=== PATIENT | male | born 1950 | race Caucasian/White ===

== ENCOUNTER 2018-08-22 17:16 | Inpatient (IN) ==
[2018-08-22] MEDS ORDERED: Aspirin 325 MG Tablet PO ONE (18:02)
--- NOTE | 2018-08-22 18:11 | XR ---
EXAM DATE: 08/22/2018 5:53 PM EDT AGE/SEX: 68 years / Male INDICATIONS: Chest pain. CLINICAL DATA: This is the patient's initial encounter. Patient reports that signs and symptoms have been present for 1 day and indicates a pain score of 3/10. MEDICAL/SURGICAL HISTORY: None. None. COMPARISON: No prior exams available for comparison. FINDINGS: Trace atelectasis left base. Lungs otherwise clear. No pleural effusion seen. No pneumothorax. Heart size within normal limits. CONCLUSION: Minimal left base atelectasis. Otherwise negative. Electronically signed by: Jean Lawton MD 08/22/2018 6:10 PM EDT
--- NOTE | 2018-08-22 18:28 | ED ---
HPI General Chief Complaint: Chest Pain Stated Complaint: chest pain, face swollen Time Seen by Provider: 08/22/18 17:53 Source: patient and family Mode of arrival: ambulatory Limitations: no limitations History of Present Illness HPI narrative: 68-year-old male the presents to the ED for evaluation of chest pain. Per patient has had chest pain that goes to his back since yesterday. Per patient he was here seen yesterday for swelling to his face. He was more concerned about this so he did not tell anything about the chest pain. Per patient the chest pain has continued through today. Per patient he took some beers to help that he will go away but it did not. He took 2 nitroglycerin of his own with some improvement of the pain. He did not took his Plavix or aspirin today. Per patient the pain is in the mid chest and feels like a pressure. He does have a history of what he calls "infarct "4-5 years ago in [place]. Per patient he did not had any stents or CABG. He was put on Plavix and blood pressure medications. Per patient he was in the hospital for about 5 days. He denies any other medical issues at this time. Denies any recent travel. No trauma. No numbness, tendon, weakness. Pain radiates to the back. Per patient the pain currently is 2 out of 10 if any. Per patient for the most part he feels better now. Related Data Home Medications Medication Instructions Recorded Confirmed aspirin 81 mg PO DAILY 08/22/18 08/22/18 clopidogrel [Plavix] 75 mg PO DAILY 08/22/18 08/22/18 meloxicam 7.5 mg PO DAILY 08/22/18 08/22/18 metoprolol tartrate 25 mg PO BID 08/22/18 08/22/18 simvastatin [Zocor] 40 mg PO QPM 08/22/18 08/22/18 Allergies Allergy/AdvReac Type Severity Reaction Status Date / Time No Known Allergies Allergy Verified 08/22/18 17:58 Review of Systems ROS: all other systems reviewed are negative [facility] Medical History Medical History HBP (high blood pressure) (Acute) Heart disease (Acute) High cholesterol (Acute) Surgical History Surgical History H/O cardiac catheterization (Acute) Social History Social History Substance History: No History of Abuse Second Hand Smoke Exposure: Yes Smoking Status: Current some day smoker Tobacco Type: Cigarettes How Often Do You Have a Drink Containing Alcohol: 2 to 3 times a week Recent Travel in [facility] within the Last 8 Weeks: No Recent Out of Country Travel within the Last 8 Weeks: No Immunization History Tetanus Immunization: <5 Years Hx Influenza Vaccine This Season: No Exam Narrative Exam Narrative: GENERAL: Well appearing SKIN: Focused skin assessment warm/dry. HEAD: Atraumatic. Normocephalic. EYES: Pupils equal and round. No scleral icterus. No injection or drainage. ENT: No nasal bleeding or discharge. Mucous membranes pink and moist. Tongue is midline. No uvula deviation. NECK: Trachea midline. No JVD. CARDIOVASCULAR: Regular rate and rhythm. No murmur appreciated. RESPIRATORY: No accessory muscle use. Clear to auscultation. Breath sounds equal bilaterally. GASTROINTESTINAL: Abdomen soft, non-tender, nondistended. Hepatic and splenic margins not palpable. MUSCULOSKELETAL: No obvious deformities. No clubbing. No cyanosis. No edema. Full range of motion of the upper and lower extremities bilaterally. 2+ pulses bilaterally. NEUROLOGICAL: Awake and alert. No obvious cranial nerve deficits. Motor grossly within normal limits. Normal speech. PSYCHIATRIC: Appropriate mood and affect; insight and judgment normal. Course Initial Documented Vital Signs Temperature 97.6 F 08/22/18 17:34 Pulse Rate 79 08/22/18 17:34 Respiratory Rate 20 08/22/18 17:34 Blood Pressure 129/65 08/22/18 17:34 Pulse Oximetry 96 08/22/18 17:34 Last Documented Vital Signs Temperature 97.8 F 08/22/18 17:53 Pulse Rate 80 08/22/18 17:53 Respiratory Rate 16 08/22/18 17:53 Blood Pressure 110/67 08/22/18 17:53 Pulse Oximetry 98 08/22/18 17:53 Medical Decision Making MDM Narrative Medical decision making narrative: 68-year-old male the presents to the ED for evaluation of chest pain. Patient was properly examined and was found to have signs and symptoms concerning for ACS. History of ACS and takes blood pressure medications and Plavix. Patient given aspirin. Labs and imaging order. Labs and imaging showed positive troponin. Patient currently minimally symptomatic. Per patient the pain is better but still present. He does have a significant history of heart disease. He is a smoker. Case was discussed with my attending Dr. Hudson who recommends admission. EKG here does not show any sign of ST elevations what appears to be Q waves on the inferior leads. Patient 's pain started yesterday. At this time recommendations for admission for further evaluation. Patient was told this and agrees with plan. Patient was on heparin bolus and drip. Dr Ramirez agrees to admission. Medical Screen Exam Complete: Yes Emergency Medical Condition: Yes Differential Diagnosis Differential Diagnosis: pancreatitis versus normal exam versus Chest pain versus typical chest pain versus ACS versus PE versus NSTEMI Medical Records Medical records reviewed: Yes I reviewed the patient's medical records. Lab Data Lab results reviewed: Yes I reviewed the patient's lab results. Lab results narrative: caogs WNL trop elevated at 1.41 CK negative Result diagrams: 08/22/18 18:00 08/22/18 18:00 Lab Results 08/22/18 08/22/18 08/22/18 Range/Units 18:00 18:00 18:00 WBC 18.0 H (4.0-11.0) th/mm3 RBC 4.20 L (4.50-5.90) mil/mm3 Hgb 13.8 (13.0-17.0) gm/dL Hct 39.1 (39.0-51.0) % MCV 93.0 (80.0-100.0) fL MCH 32.9 (27.0-34.0) pg MCHC 35.4 (32.0-36.0) % RDW 13.7 (11.6-17.2) % Plt Count 214 (150-450) th/mm3 MPV 9.3 (7.0-11.0) fL Neut % (Auto) 86.7 H (16.0-70.0) % Lymph % (Auto) 6.7 L (9.0-44.0) % [place] % (Auto) 6.4 (0.0-8.0) % Eos % (Auto) 0.0 (0.0-4.0) % Baso % (Auto) 0.2 (0.0-2.0) % Neut # (Auto) 15.6 H (1.8-7.7) th/mm3 Lymph # (Auto) 1.2 (1.0-4.8) th/mm3 [place] # (Auto) 1.1 H (0.0-0.9) th/mm3 Eos # (Auto) 0.0 (0.0-0.4) th/mm3 Baso # (Auto) 0.0 (0.0-0.2) th/mm3 WBC Differential . Differential Comment Auto diff final PT 10.3 (9.8-11.6) sec INR 1.0 Ratio APTT 25.6 (24.3-30.1) sec Sodium 138 (136-145) meq/L Potassium 3.9 (3.5-5.1) meq/L Chloride 103 (98-107) meq/L Carbon Dioxide 24.0 (21.0-32.0) meq/L Anion Gap 11 (5-15) meq/L BUN 19 H (7-18) mg/dL Creatinine 1.04 (0.60-1.30) mg/dL Estimated GFR 71 L (>89) mL/min Random Glucose 249 H (74-106) mg/dL Calcium 9.0 (8.5-10.1) mg/dL Total Bilirubin 0.3 (0.2-1.0) mg/dL AST 32 (15-37) U/L ALT 30 (12-78) U/L Alkaline Phosphatase 75 (45-117) U/L Total Creatine Kinase 352 H (39-308) U/L CK-MB (CK-2) 13.3 H (0.5-3.6) ng/mL CK-MB (CK-2) % 3.8 (0.0-4.0) % Troponin I 1.41 H* (0.02-0.05) ng/mL Total Protein 7.0 (6.4-8.2) g/dL Albumin 3.8 (3.4-5.0) g/dL Lipase (73-393) U/L 08/22/18 Range/Units 18:00 WBC (4.0-11.0) th/mm3 RBC (4.50-5.90) mil/mm3 Hgb (13.0-17.0) gm/dL Hct (39.0-51.0) % MCV (80.0-100.0) fL MCH (27.0-34.0) pg MCHC (32.0-36.0) % RDW (11.6-17.2) % Plt Count (150-450) th/mm3 MPV (7.0-11.0) fL Neut % (Auto) (16.0-70.0) % Lymph % (Auto) (9.0-44.0) % [place] % (Auto) (0.0-8.0) % Eos % (Auto) (0.0-4.0) % Baso % (Auto) (0.0-2.0) % Neut # (Auto) (1.8-7.7) th/mm3 Lymph # (Auto) (1.0-4.8) th/mm3 [place] # (Auto) (0.0-0.9) th/mm3 Eos # (Auto) (0.0-0.4) th/mm3 Baso # (Auto) (0.0-0.2) th/mm3 WBC Differential Differential Comment PT (9.8-11.6) sec INR Ratio APTT (24.3-30.1) sec Sodium (136-145) meq/L Potassium (3.5-5.1) meq/L Chloride (98-107) meq/L Carbon Dioxide (21.0-32.0) meq/L Anion Gap (5-15) meq/L BUN (7-18) mg/dL Creatinine (0.60-1.30) mg/dL Estimated GFR (>89) mL/min Random Glucose (74-106) mg/dL Calcium (8.5-10.1) mg/dL Total Bilirubin (0.2-1.0) mg/dL AST (15-37) U/L ALT (12-78) U/L Alkaline Phosphatase (45-117) U/L Total Creatine Kinase (39-308) U/L CK-MB (CK-2) (0.5-3.6) ng/mL CK-MB (CK-2) % (0.0-4.0) % Troponin I (0.02-0.05) ng/mL Total Protein (6.4-8.2) g/dL Albumin (3.4-5.0) g/dL Lipase 106 (73-393) U/L Imaging Data Attestation: I personally reviewed and interpreted this imaging study as follows : Radiologist's impression: Chest X-Ray 08/22/18 17:53 CONCLUSION: Minimal left base atelectasis. Otherwise negative. ECG Data Attestation: I personally reviewed and interpreted this ECG as follows: Interpretation: EKG shows Q waves in the inferior leads. No sign of ST elevations at this time. Read by me and attending. Ventricular rate of 81 bpm , NH interval of 163 ms. Discharge Plan Discharge Disposition Patient Disposition: 30 Still Patient Discharge Details Diagnosis: Non-ST elevation (NSTEMI) myocardial infarction Physicians Team ED Provider: [facility] ED Midlevel Provider: Finn Martinez Primary Care Provider: Ronny Loving Rxs /Orders / Referrals /Forms Prescriptions: No Action clopidogrel [Plavix] 75 mg Tablet 75 mg PO DAILY RF: 0 simvastatin [Zocor] 40 mg Tablet 40 mg PO QPM RF: 0 meloxicam 7.5 mg Tablet 7.5 mg PO DAILY RF: 0 aspirin 81 mg Tablet,Chewable 81 mg PO DAILY RF: 0 metoprolol tartrate 25 mg Tablet 25 mg PO BID RF: 0 Discharge Instructions Patient Printed Instructions: Chest Pain (ED) Status ED Status: Admitted Patient
[2018-08-22 18:30] LABS: Baso % (Auto) 0.2 % (0.0-2.0); Hematocrit 39.1 % (39.0-51.0); Hemoglobin 13.8 gm/dL (13.0-17.0); Lymph # (Auto) 1.2 th/mm3 (1.0-4.8); Lymph % (Auto) 6.7 % (9.0-44.0); Mean Corpuscular HGB Conc 35.4 % (32.0-36.0); Mean Corpuscular Hemoglobin 32.9 pg (27.0-34.0); Mean Platelet Volume 9.3 fL (7.0-11.0); Mono # (Auto) 1.1 th/mm3 (0.0-0.9); Mono % (Auto) 6.4 % (0.0-8.0); Neut # (Auto) 15.6 th/mm3 (1.8-7.7); Neut % (Auto) 86.7 % (16.0-70.0); Platelet Count 214 th/mm3 (150-450); Red Cell Distribution Width 13.7 % (11.6-17.2)
[2018-08-22 18:42] LABS: Activated Partial Thrombo Time 25.6 sec (24.3-30.1); Prothrombin Time 10.3 sec (9.8-11.6)
[2018-08-22 18:58] LABS: Albumin 3.8 g/dL (3.4-5.0); Anion Gap 11 meq/L (5-15); Aspartate Aminotransferase 32 U/L (15-37); Blood Urea Nitrogen 19 mg/dL (7-18); Chloride 103 meq/L (98-107); Glomerular Filtration Rate 71 mL/min (>89); Glucose,Random 249 mg/dL (74-106); Potassium 3.9 meq/L (3.5-5.1); Sodium 138 meq/L (136-145)
[2018-08-22 19:03] LABS: Alanine Aminotransferase 30 U/L (12-78); Alkaline Phosphatase 75 U/L (45-117); Creatine Kinase 352 U/L (39-308)
[2018-08-22 19:10] LABS: Troponin I 1.41 ng/mL (0.02-0.05)
[2018-08-22] MEDS ORDERED: Heparin 10,000 UNITS/10 ML Vial (for IV use) IV.PUSH STA (19:13)
[2018-08-22 19:22] LABS: CKMB Percent 3.8 % (0.0-4.0); Creatine Kinase MB 13.3 ng/mL (0.5-3.6)
[2018-08-22] MEDS: Heparin Drip 25,000 UNIT/250 ML BAG IV.CONT PRN (19:40)
[2018-08-22 20:28] LABS: Activated Partial Thrombo Time 25.4 sec (24.3-30.1); Prothrombin Time 10.4 sec (9.8-11.6)
[2018-08-22] MEDS: Metoprolol Tartrate 25 MG Tablet PO SCH (21:00)
[2018-08-22] MEDS ORDERED: Temazepam 15 MG Capsule PO PRN (21:02)
[2018-08-22] MEDS ORDERED: Bisacodyl 10 MG Supp RECTAL PRN (21:02)
--- NOTE | 2018-08-22 21:27 | P.HP ---
History of Present Illness Service: [facility] Primary Care Physician: Ronny Loving History of Present Illness: 68-year-old male with a past medical history significant for coronary artery disease status post SD, hypertension and hyperlipidemia presents the emergency department for evaluation of chest pain. The patient reports that the chest pain started yesterday he describes it as substernal and radiating to his left arm into his back. He was seen in the emergency department yesterday for facial swelling and given steroids and Benadryl with improvement of his symptoms. He returned to the emergency department today for worsening chest pain with accompanying shortness of breath. He denies any fever/chills. No headaches. No nausea/vomiting/diarrhea. No abdominal pain. No lateralizing signs/symptoms. Inpatient Certification: I certify that the inpatient services were ordered in accordance with Medicare regulations governing the order. This includes certification that hospital inpatient services are reasonable and necessary and in the case of services not specified as inpatient-only under 42 CFR 419.22(n), that they are appropriately provided as inpatient services in accordance to with the 2-midnight benchmark under 43 CFR 412.3(e) Estimated Total Length of Stay (Days): 3 Plans for Post Hospital Care: Home Review of Systems All other systems reviewed negative except as stated in [facility] - History History Provided By: Patient - Medical History Medical History: Medical History (Last Updated 08/22/18 @ 21:17 by Ayleen Ramirez MD) Coronary artery disease HBP (high blood pressure) Heart disease High cholesterol Status post myocardial infarction - Surgical History Surgical History: Surgical History (Last Updated 08/22/18 @ 21:18 by Ayleen Ramirez MD) H/O cardiac catheterization History of hand surgery - Family History Family History: Family History (Last Updated 08/22/18 @ 21:19 by Ayleen Ramirez MD) Other Family history normal - Tobacco History Second Hand Smoke Exposure: Yes Tobacco Use In Past 30 Days: Yes Smoking Status: Current some day smoker Tobacco Type: Cigarettes - Alcohol History How Often Do You Have a Drink Containing Alcohol: 2 to 3 times a week - Substance Use History Substance History: No History of Abuse - Travel History Recent Travel in the [place] Within the Last 8 Weeks: No Recent Travel Out of the Country Within the Last 8 Weeks: No - Immunization History Tetanus Immunization: <5 Years Hx Influenza Vaccine This Season: No Medications and Allergies Active Medications: Active Medications Acetaminophen (Tylenol) 650 mg PO Q4H PRN PRN Reason: Temp > 100.4 Aspirin (Aspirin Chew) 81 mg PO DAILY JASON Bisacodyl (Dulcolax Supp) 10 mg RECTAL DAILY PRN PRN Reason: SEVERE CONSITIPATION Clopidogrel Bisulfate (Plavix) 75 mg PO DAILY [facility] Heparin Sodium/Dextrose (Heparin/D5w 25,000 U/250 Ml) 25,000 unit in 250 mls @ 0 mls/hr IV.CONT TITRATE PRN; Protocol PRN Reason: Per Protocol Last Admin: 08/22/18 19:40 Dose: 900 units/hr, 9 mls/hr Metoprolol Tartrate (Lopressor) 25 mg PO BID JASON Non-Formulary Medication (Simvastatin [Zocor]) 40 mg PO QPM JASON Ondansetron HCl (Zofran Inj) 4 mg IV.PUSH Q6H PRN PRN Reason: NAUSEA OR VOMITING Sennosides (Senokot) 17.2 mg PO Q12H PRN PRN Reason: Moderate Constipation Sodium Chloride (Ns Flush) 2 ml IV.FLUSH UNSCH PRN PRN Reason: FLUSH AFTER USING IV ACCESS Last Admin: 08/22/18 18:06 Dose: 2 ml Temazepam (Restoril) 15 mg PO HS PRN PRN Reason: INSOMNIA Allergies Allergy/AdvReac Type Severity Reaction Status Date / Time No Known Allergies Allergy Verified 08/22/18 17:58 Home Medications Medication Instructions Recorded Confirmed Type aspirin 81 mg PO DAILY 08/22/18 08/22/18 History clopidogrel [Plavix] 75 mg PO DAILY 08/22/18 08/22/18 History meloxicam 7.5 mg PO DAILY 08/22/18 08/22/18 History metoprolol tartrate 25 mg PO BID 08/22/18 08/22/18 History simvastatin [Zocor] 40 mg PO QPM 08/22/18 08/22/18 History Exam Vital signs: Vital Signs 08/22/18 17:34 08/22/18 17:48 08/22/18 17:53 Temperature 97.6 F 97.8 F Pulse Rate 79 72 80 Respiratory Rate 20 16 16 Blood Pressure 129/65 108/63 110/67 Pulse Oximetry 96 99 98 08/22/18 19:55 Temperature Pulse Rate 75 Respiratory Rate 16 Blood Pressure 100/62 Pulse Oximetry 96 Intake & Output 08/22/18 08/22/18 08/23/18 06:59 18:59 06:59 Weight 75 kg Narrative: Gen.: No acute distress Head: Normocephalic. Atraumatic. EENT: Pupils equal round and reactive to light. Nose without drainage. Airway intact. Throat without injection. Cardiovascular: Regular rate and rhythm. 3/6 LUCINDA. Respiratory: Lungs clear to auscultation bilaterally. No wheezes or rhonchi. Abdomen: Soft, nontender, nondistended. No peritoneal signs. Musculoskeletal: No gross deformities. No edema. Skin: No obvious rashes or erythema. Neuro: Sensory and motor grossly intact. Cranial nerves II through XII grossly intact. Results - Labs CBC & Chem 7: 08/22/18 18:00 08/22/18 18:00 Labs: Laboratory Results - last 24 hr 08/22/18 08/22/18 08/22/18 18:00 18:00 18:00 WBC 18.0 H RBC 4.20 L Hgb 13.8 Hct 39.1 MCV 93.0 MCH 32.9 MCHC 35.4 RDW 13.7 Plt Count 214 MPV 9.3 Neut % (Auto) 86.7 H Lymph % (Auto) 6.7 L [place] % (Auto) 6.4 Eos % (Auto) 0.0 Baso % (Auto) 0.2 Neut # (Auto) 15.6 H Lymph # (Auto) 1.2 [place] # (Auto) 1.1 H Eos # (Auto) 0.0 Baso # (Auto) 0.0 WBC Differential . Differential Comment Auto diff final PT 10.3 INR 1.0 APTT 25.6 D-Dimer Quant (PE/DVT) Sodium 138 Potassium 3.9 Chloride 103 Carbon Dioxide 24.0 Anion Gap 11 BUN 19 H Creatinine 1.04 Estimated GFR 71 L Random Glucose 249 H Calcium 9.0 Total Bilirubin 0.3 AST 32 ALT 30 Alkaline Phosphatase 75 Total Creatine Kinase 352 H CK-MB (CK-2) 13.3 H CK-MB (CK-2) % 3.8 Troponin I 1.41 H* Total Protein 7.0 Albumin 3.8 Lipase 08/22/18 08/22/18 08/22/18 18:00 18:00 19:35 WBC RBC Hgb Hct MCV MCH MCHC RDW Plt Count MPV Neut % (Auto) Lymph % (Auto) [place] % (Auto) Eos % (Auto) Baso % (Auto) Neut # (Auto) Lymph # (Auto) [place] # (Auto) Eos # (Auto) Baso # (Auto) WBC Differential Differential Comment PT 10.4 INR 1.0 APTT 25.4 D-Dimer Quant (PE/DVT) 1.57 H Sodium Potassium Chloride Carbon Dioxide Anion Gap BUN Creatinine Estimated GFR Random Glucose Calcium Total Bilirubin AST ALT Alkaline Phosphatase Total Creatine Kinase CK-MB (CK-2) CK-MB (CK-2) % Troponin I Total Protein Albumin Lipase 106 - Imaging Impressions Chest X-Ray 08/22/18 17:53 CONCLUSION: Minimal left base atelectasis. Otherwise negative. Caprini VTE Risk Assessment Caprini VTE Risk Assessment: Moderate/High Risk (score >= 2) Caprini Risk Assessment Model: Point Value = 1 Point Value = 2 Point Value = 3 Point Value = 5 Age 41-60 Minor surgery BMI > 25 kg/m2 Swollen legs Varicose veins or History of unexplained or recurrent spontaneous Oral contraceptives or hormone replacement Sepsis (< 1 month) Serious lung disease, including pneumonia (< 1 month) Abnormal pulmonary function Acute myocardial infarction Congestive heart failure (< 1 month) History of inflammatory bowel disease Medical patient at bed rest Age 61-74 Arthroscopic surgery Major open surgery (> 45 min) Laparoscopic surgery (> 45 min) Malignancy Confined to bed (> 72 hours) Immobilizing plaster cast Central venous access Age >= 75 History of VTE Family history of VTE Factor V Leiden Prothrombin [id number] Lupus anticoagulant Anticardiolipin antibodies Elevated serum homocysteine Heparin-induced thrombocytopenia Other congenital or acquired thrombophilia Stroke (< 1 month) Elective arthroplasty Hip, pelvis, or leg fracture Acute spinal cord injury (< 1 month) Prophylaxis Regimen: Total Risk Factor Score Risk Level Prophylaxis Regimen 0-1 Low Early ambulation 2 Moderate Order ONE of the following: *Sequential Compression Device (SCD) *Heparin 5000 units SQ BID 3-4 Higher Order ONE of the following medications: *Heparin 5000 units SQ TID *Enoxaparin/Lovenox 40 mg SQ daily (WT < 150 kg, CrCl > 30 mL/min) *Enoxaparin/Lovenox 30 mg SQ daily (WT < 150 kg, CrCl > 10-29 mL/min) *Enoxaparin/Lovenox 30 mg SQ BID (WT < 150 kg, CrCl > 30 mL/min) AND/OR *Sequential Compression Device (SCD) 5 or more Highest Order ONE of the following medications: *Heparin 5000 units SQ TID (Preferred with Epidurals) *Enoxaparin/Lovenox 40 mg SQ daily (WT < 150 kg, CrCl > 30 mL/min) *Enoxaparin/Lovenox 30 mg SQ daily (WT < 150 kg, CrCl > 10-29 mL/min) *Enoxaparin/Lovenox 30 mg SQ BID (WT < 150 kg, CrCl > 30 mL/min) AND *Sequential Compression Device (SCD) Assessment and Plan - Plan Assessment/plan: 1. NSTEMI Initial troponin 1.41 EKG without signs of ischemia, personally reviewed Serial troponins/EKGs Heparin bolus and drip Cardiology consulted, appreciate assistance Patient reports history of previous cardiac catheterization without intervention however is on Plavix. 2. Shortness of breath/elevated d-dimer CTA pending to rule out PE 3. CAD/hypertension/hyperlipidemia Continue home medications FEN N.p.o. Electrolytes: Monitor and replete as needed NS at 70 cc/hour Heparin drip
--- NOTE | 2018-08-22 22:42 | CT ---
EXAM DATE: 08/22/2018 10:06 PM EDT AGE/SEX: 68 years / Male INDICATIONS: Chest pain. CLINICAL DATA: This is the patient's initial encounter. Patient reports that signs and symptoms have been present for 1 day and indicates a pain score of 10/10. MEDICAL/SURGICAL HISTORY: Hypertension. Cardiovascular disease. Myocardial infarction. . Cardiac Cath. RADIATION DOSE: 21.60 CTDI (mGy) COMPARISON: No prior exams available for comparison. TECHNIQUE: Volumetric scanning was performed using a multi-row detector CT scanner during bolus infu marzena of 75 ml Omnipaque 350 (iohexol) nonionic water-soluble contrast as a single exam dose. The sarah a was post processed with a variety of visualization algorithms including full volume maximum intensi ty projection and sliding thin slab reformation. Using automated exposure control and adjustment of the mA and/or kV according to patient size, radiation dose was kept as low as reasonably achievable t o obtain optimal diagnostic quality images. DICOM format image data is available electronically for review and comparison. FINDINGS: There is no pulmonary embolus. Trace atelectasis seen of both lung bases. No pneumonic infiltrate. No pleural effusion or pneumothor ax. Heart size within normal limits. There is right and left side coronary artery calcification noted. No lymphadenopathy. Visualized upper abdomen grossly unremarkable. CONCLUSION: 1. No pulmonary embolus. 2. Mild atelectasis of both lung bases. 3. Coronary artery calcification. Electronically signed by: Jean Lawton MD 08/22/2018 10:41 PM EDT
[2018-08-22] MEDS: Acetaminophen 325 MG Tablet PO PRN (23:14)
[2018-08-22] MEDS: Sod Chloride 0.9% Inj 1,000 ML IV.CONT SCH (23:17)
[2018-08-23 01:55] LABS: Troponin I 11.3 ng/mL (0.02-0.05)
[2018-08-23 02:07] LABS: Creatine Kinase MB 26.3 ng/mL (0.5-3.6)
[2018-08-23 02:09] LABS: CKMB Percent 5.8 % (0.0-4.0)
[2018-08-23 06:54] LABS: Baso % (Auto) 0.3 % (0.0-2.0); Eos % (Auto) 0.1 % (0.0-4.0); Hematocrit 40.3 % (39.0-51.0); Hemoglobin 13.4 gm/dL (13.0-17.0); Lymph # (Auto) 2.6 th/mm3 (1.0-4.8); Lymph % (Auto) 20.2 % (9.0-44.0); Mean Corpuscular HGB Conc 33.4 % (32.0-36.0); Mean Corpuscular Hemoglobin 31.4 pg (27.0-34.0); Mean Corpuscular Volume 94.2 fL (80.0-100.0); Mean Platelet Volume 9.6 fL (7.0-11.0); Mono # (Auto) 0.8 th/mm3 (0.0-0.9); Mono % (Auto) 6.4 % (0.0-8.0); Neut # (Auto) 9.3 th/mm3 (1.8-7.7); Platelet Count 185 th/mm3 (150-450); Red Blood Count 4.28 mil/mm3 (4.50-5.90); Red Cell Distribution Width 13.8 % (11.6-17.2); White Blood Count 12.7 th/mm3 (4.0-11.0)
[2018-08-23 07:23] LABS: Anion Gap 10 meq/L (5-15); Blood Urea Nitrogen 18 mg/dL (7-18); Calcium 7.9 mg/dL (8.5-10.1); Carbon Dioxide 25.9 meq/L (21.0-32.0); Chloride 107 meq/L (98-107); Glomerular Filtration Rate Greater Than 89 mL/min (>89); Glucose,Random 113 mg/dL (74-106); Potassium 4.1 meq/L (3.5-5.1); Sodium 143 meq/L (136-145)
[2018-08-23] MEDS: Acetaminophen 325 MG Tablet PO PRN ×2 (07:30→23:31)
[2018-08-23] MEDS: Metoprolol Tartrate 25 MG Tablet PO SCH ×2 (09:15→20:38)
--- NOTE | 2018-08-23 13:00 | P.PNIM ---
Subjective Interval history: Patient is eating today and a history of received from family is that the plan is to go to heart catheterization tomorrow. He denies any chest pain or shortness of breath. Physical Exam Vital signs: Vital Signs 08/22/18 17:34 08/22/18 17:48 08/22/18 17:53 Temperature 97.6 F 97.8 F Pulse Rate 79 72 80 Respiratory Rate 20 16 16 Blood Pressure 129/65 108/63 110/67 Pulse Oximetry 96 99 98 08/22/18 19:55 08/22/18 23:00 08/23/18 00:00 Temperature 98 F Pulse Rate 75 71 68 Respiratory Rate 16 16 16 Blood Pressure 100/62 110/72 Pulse Oximetry 96 96 08/23/18 01:00 08/23/18 02:00 08/23/18 03:00 Temperature Pulse Rate 67 65 67 Respiratory Rate Blood Pressure Pulse Oximetry 08/23/18 04:00 08/23/18 05:00 08/23/18 06:00 Temperature 98.3 F Pulse Rate 82 68 65 Respiratory Rate 16 Blood Pressure 115/68 Pulse Oximetry 97 08/23/18 07:00 08/23/18 07:38 08/23/18 08:00 Temperature 97.6 F Pulse Rate 63 67 68 Respiratory Rate 24 Blood Pressure 115/50 L Pulse Oximetry 94 L 94 L 08/23/18 09:00 08/23/18 10:00 08/23/18 11:00 Temperature Pulse Rate 70 72 69 Respiratory Rate Blood Pressure Pulse Oximetry 08/23/18 12:00 Temperature 98.1 F Pulse Rate 68 Respiratory Rate 18 Blood Pressure 107/53 L Pulse Oximetry 93 L Intake & Output 08/22/18 08/23/18 08/23/18 18:59 06:59 18:59 Intake Total 0 / 0 Balance 0 / 0 Weight 75 kg 89.4 kg Intake: Oral 0 / 0 Other: # Voids 1 # Bowel Movements 0 Narrative: GENERAL: AAOx3, no acute distress SKIN: Warm and dry. No rashes HEAD: Atruamtic, normocephalic. EYES: No scleral icterus. No injection or drainage. ENT: Moist mucous membranes, patent nares, no erythema of oropharynx. NECK: Supple, trachea midline. No JVD or lymphadenopathy. Normal thyroid. CARDIOVASCULAR: Regular rate and rhythm. 1/6 LUCINDA, no gallops, or rubs. RESPIRATORY: Breath sounds clear equal bilaterally. No crackles or wheezes. No accessory muscle use. GASTROINTESTINAL: Abdomen soft, non-tender, nondistended, normal active bowel sounds MUSCULOSKELETAL: No cyanosis, or edema. NEURO: CN II-XII grossly intact, no focal deficits, no slurring of speech Results - Labs CBC & Chem 7: 08/23/18 05:31 08/23/18 05:31 Laboratory Results - last 24 hr 08/22/18 08/22/18 08/22/18 18:00 18:00 18:00 WBC 18.0 H RBC 4.20 L Hgb 13.8 Hct 39.1 MCV 93.0 MCH 32.9 MCHC 35.4 RDW 13.7 Plt Count 214 MPV 9.3 Neut % (Auto) 86.7 H Lymph % (Auto) 6.7 L [place] % (Auto) 6.4 Eos % (Auto) 0.0 Baso % (Auto) 0.2 Neut # (Auto) 15.6 H Lymph # (Auto) 1.2 [place] # (Auto) 1.1 H Eos # (Auto) 0.0 Baso # (Auto) 0.0 WBC Differential . Differential Comment Auto diff final PT 10.3 INR 1.0 APTT 25.6 D-Dimer Quant (PE/DVT) Sodium 138 Potassium 3.9 Chloride 103 Carbon Dioxide 24.0 Anion Gap 11 BUN 19 H Creatinine 1.04 Estimated GFR 71 L Random Glucose 249 H Calcium 9.0 Total Bilirubin 0.3 AST 32 ALT 30 Alkaline Phosphatase 75 Total Creatine Kinase 352 H CK-MB (CK-2) 13.3 H CK-MB (CK-2) % 3.8 Troponin I 1.41 H* Total Protein 7.0 Albumin 3.8 Lipase 08/22/18 08/22/18 08/22/18 18:00 18:00 19:35 WBC RBC Hgb Hct MCV MCH MCHC RDW Plt Count MPV Neut % (Auto) Lymph % (Auto) [place] % (Auto) Eos % (Auto) Baso % (Auto) Neut # (Auto) Lymph # (Auto) [place] # (Auto) Eos # (Auto) Baso # (Auto) WBC Differential Differential Comment PT 10.4 INR 1.0 APTT 25.4 D-Dimer Quant (PE/DVT) 1.57 H Sodium Potassium Chloride Carbon Dioxide Anion Gap BUN Creatinine Estimated GFR Random Glucose Calcium Total Bilirubin AST ALT Alkaline Phosphatase Total Creatine Kinase CK-MB (CK-2) CK-MB (CK-2) % Troponin I Total Protein Albumin Lipase 106 08/23/18 08/23/18 08/23/18 01:06 01:06 05:31 WBC 12.7 H RBC 4.28 L Hgb 13.4 Hct 40.3 MCV 94.2 MCH 31.4 MCHC 33.4 RDW 13.8 Plt Count 185 MPV 9.6 Neut % (Auto) 73.0 H Lymph % (Auto) 20.2 [place] % (Auto) 6.4 Eos % (Auto) 0.1 Baso % (Auto) 0.3 Neut # (Auto) 9.3 H Lymph # (Auto) 2.6 [place] # (Auto) 0.8 Eos # (Auto) 0.0 Baso # (Auto) 0.0 WBC Differential . Differential Comment Auto diff final PT INR APTT 35.0 H D D-Dimer Quant (PE/DVT) Sodium Potassium Chloride Carbon Dioxide Anion Gap BUN Creatinine Estimated GFR Random Glucose Calcium Total Bilirubin AST ALT Alkaline Phosphatase Total Creatine Kinase 455 H CK-MB (CK-2) 26.3 H CK-MB (CK-2) % 5.8 H* Troponin I 11.30 H* Total Protein Albumin Lipase 08/23/18 08/23/18 05:31 07:43 WBC RBC Hgb Hct MCV MCH MCHC RDW Plt Count MPV Neut % (Auto) Lymph % (Auto) [place] % (Auto) Eos % (Auto) Baso % (Auto) Neut # (Auto) Lymph # (Auto) [place] # (Auto) Eos # (Auto) Baso # (Auto) WBC Differential Differential Comment PT INR APTT 37.3 H D-Dimer Quant (PE/DVT) Sodium 143 Potassium 4.1 Chloride 107 Carbon Dioxide 25.9 Anion Gap 10 BUN 18 Creatinine 0.77 Estimated GFR Greater than 89 Random Glucose 113 H D Calcium 7.9 L D Total Bilirubin AST ALT Alkaline Phosphatase Total Creatine Kinase CK-MB (CK-2) CK-MB (CK-2) % Troponin I 11.70 H* Total Protein Albumin Lipase - Imaging Impressions Chest CTA 08/22/18 00:00 CONCLUSION: 1. No pulmonary embolus. 2. Mild atelectasis of both lung bases. 3. Coronary artery calcification. Chest X-Ray 08/22/18 17:53 CONCLUSION: Minimal left base atelectasis. Otherwise negative. Assessment and Plan - Plan NSTEMI Initial troponin 1.41 on admission, normal EKG EKG without signs of ischemia, personally reviewed Troponin level bumped up to 11.4, patient is currently asymptomatic Continue heparin bolus and drip Patient reports history of previous cardiac catheterization without intervention however is on Plavix We will look for cardiology recommendations regarding catheterization Appreciate cardiology consult Shortness of breath/elevated d-dimer CTA shows no evidence pulmonary embolism CAD/hypertension/hyperlipidemia Continue home medications DVT prophylaxis Heparin drip
[2018-08-23] MEDS: Sod Chloride 0.9% Inj 1,000 ML IV.CONT SCH (13:09)
--- NOTE | 2018-08-23 14:12 | MB ---
cc: Rolf Almazan MD DATE: 08/23/2018 HISTORY OF PRESENT ILLNESS: Judah is a very pleasant 68-year-old gentleman. He speaks Burundian primarily and does not speak Guamanian. I had to speak to him in Burundian. He denies any past medical history. He presented with chest pain. He is currently chest pain free, resting comfortably in bed, in no acute distress. Further review of systems is negative for any fever, chills, cough, GI or bleeding, PND, orthopnea, syncope or dizziness. PAST MEDICAL HISTORY: Per history of present illness. Further history is obtained from the ER. He had been recently treated for swelling in his face. He had been on Plavix and aspirin previously missed some doses. He was treated for a myocardial infarction in [place] 5 years ago. PAST MEDICAL HISTORY: Includes hyperlipidemia, hypertension. SOCIAL HISTORY: He does smoke. Drinks 2-3 times a week. ALLERGIES: NONE. MEDICATIONS IN THE HOSPITAL: 1. Aspirin 81 mg daily. 2. Plavix 75 mg daily. 3. Heparin drip. 4. Lopressor 25 mg b.i.d. 5. Pravachol 80 mg q.p.m. PHYSICAL EXAMINATION: VITAL SIGNS: Blood pressure 107/53, pulse 68, saturation is 93% on room air, temperature 98.1. GENERAL: He is alert and oriented x3, in no acute distress. NECK: Supple. No JVD. No bruit. CARDIOVASCULAR: S1, S2, with no murmurs, rubs or gallops. LUNGS: Clear to auscultation bilaterally. ABDOMEN: Soft, nontender, nondistended with positive bowel sounds. EXTREMITIES: No lower extremity edema. DIAGNOSTIC STUDIES: CT of chest: No pulmonary embolus, mild atelectasis at both lung bases, coronary artery calcification. Chest x-ray: Minimal left base atelectasis, otherwise negative. EKG: Normal sinus rhythm at 81 beats per minute, repolarization abnormality, small Q-waves in inferior leads. LABORATORY DATA: White count 12.7, hemoglobin 13.4, hematocrit 40.3, platelet count 185. INR 1.0. Sodium 143, potassium 4.1, chloride 107, bicarbonate 25.9, BUN 18, creatinine 0.77. Troponin is 1.41 followed by 11.30 and then 11.70. DIAGNOSES: 1. Xuq-RH-tfxsgawna myocardial infarction. 2. Tobacco use. 3. Elevated white count. 4. Coronary artery disease. 5. Hypertension. DISCUSSION: The patient is currently pain free. He is on optimal medical therapy except for JOHN inhibitor. Recommend continue aspirin and Plavix, Lopressor, Pravachol. Recommend left heart catheterization, which I will schedule for 08/24/2018. The patient agrees with the plan. Strongly recommend smoking cessation. MD TESHA Vallecillo/bernice , 01:50 PM , 02:00 PM
--- NOTE | 2018-08-23 17:16 | ECG ---
Date Performed: 08/22/2018 Time Performed: 18:12:03 PTAGE: 68 years EKG: Sinus rhythm INFERIOR MYOCARDIAL INFARCTION ABNORMAL ECG NO PREVIOUS TRACING DOCTOR: Sanju Tripathi Interpretating Date/Time 08/23/2018 17:12:17
--- NOTE | 2018-08-23 17:17 | ECG ---
Date Performed: 08/23/2018 Time Performed: 05:35:46 PTAGE: 68 years EKG: Sinus rhythm Inferior infarct - age undetermined Abnormal ECG PREVIOUS TRACING : 08/23/2018 00.07 Since the previous tracing, no significant change noted DOCTOR: Sanju Tripathi Interpretating Date/Time 08/23/2018 17:12:59
--- NOTE | 2018-08-23 17:17 | ECG ---
Date Performed: 08/23/2018 Time Performed: 00:07:28 PTAGE: 68 years EKG: Sinus rhythm Inferior infarct - age undetermined Abnormal ECG PREVIOUS TRACING : 08/22/2018 18.12 Since the previous tracing, no significant change noted DOCTOR: Sanju Tripathi Interpretating Date/Time 08/23/2018 17:12:34
[2018-08-23] MEDS: Heparin Drip 25,000 UNIT/250 ML BAG IV.CONT PRN (17:40)
[2018-08-24] MEDS: Sod Chloride 0.9% Inj 1,000 ML IV.CONT SCH ×2 (03:21→17:52)
[2018-08-24 05:32] LABS: Hematocrit 40.6 % (39.0-51.0); Hemoglobin 13.9 gm/dL (13.0-17.0); Mean Corpuscular HGB Conc 34.3 % (32.0-36.0); Mean Corpuscular Hemoglobin 31.9 pg (27.0-34.0); Mean Corpuscular Volume 93.1 fL (80.0-100.0); Mean Platelet Volume 9.6 fL (7.0-11.0); Platelet Count 164 th/mm3 (150-450); Red Blood Count 4.37 mil/mm3 (4.50-5.90); Red Cell Distribution Width 13.7 % (11.6-17.2); White Blood Count 8.1 th/mm3 (4.0-11.0)
[2018-08-24] MEDS: Metoprolol Tartrate 25 MG Tablet PO SCH ×2 (08:53→21:09)
[2018-08-24] MEDS ORDERED: Iohexol 350 MG/ML 50 ML Vial (for Cath Lab) IVCONTRAST ONE (09:47)
[2018-08-24] MEDS ORDERED: Iohexol 350 MG/ML 100 ML Vial (for Cath Lab) IVCONTRAST ONE (09:47)
[2018-08-24] MEDS ORDERED: Heparin/NS PF Inj 1,500 ML ONE (12:53)
[2018-08-24] MEDS ORDERED: Heparin/NS PF Inj 1,000 ML ONE (13:06)
[2018-08-24] MEDS ORDERED: fentaNYL Citrate Inj 100 MCG/2 ML Ampul ONE ×2 (13:09→16:52)
[2018-08-24] MEDS ORDERED: fentaNYL Citrate Inj 100 MCG/2 ML Ampul IV.PUSH ONE ×2 (13:26→16:45)
[2018-08-24] MEDS ORDERED: Heparin 10,000 UNITS/10 ML Vial (for IV use) ONE (13:37)
[2018-08-24] MEDS ORDERED: Heparin 10,000 UNITS/10 ML Vial (for IV use) IV.PUSH ONE (13:41)
[2018-08-24] MEDS ORDERED: Tirofiban Inj 12,500 MCG/250 ML PLAST..BAG ONE (14:06)
--- NOTE | 2018-08-24 14:26 | CATHPROC ---
[employer] HIS Report Study Information Study Number Admission Scheduled Start Study Start [id number] Aug 22 2018 7:32PM 08/23/2018 Aug 24 2018 1:06PM [place] Service Cath Endovascular Study Admit Source Facility Department Emergency department [facility] - Human Resources Assistant Physician and Clinical Staff Initial Rolf Lofton Automation Specialist Nas Meza,RN Recorder Maci Weber,RT(R) (BS) Scrub Emmanuel Hendrickson,RT(R) Procedures Performed Procedure Location (Site) Vessel Name Coronary Angiograms LCA Left Coronary Coronary Angiograms RCA Right Coronary L Heart Cath LV Gram-hand inj. LV LV Ventricle PTCA OM1 Mid CIRC PTCA ADD ON'S Stent OM1 Mid CIRC Wire insertion Fem Art (right) Femoral Art Equipment Time Web Marketing Strategist Description Size Mfg Part Number Used/Scraped [id number] 13:43 [employer] WIRE, ASAHI PROWATER 180CM 180CM Used *[id number] 13:58 [employer] WIRE, ASAHI PROWATER 180CM 180CM Used *[id number] TRANSDUCER, TRUWAVE [id number] 13:14 FRANCISCO HENSON * Used W/STOCKCOCK *[id number] 13:48 [employer] WIRE, CHOICE PT 182CM 182CM Used *[id number] [id number] *[id number] *[id number] *[id number] *[id number] 13:14 MiSiedo BLANKET,WARM AIR CCL * Used *[id number] 13:14 [employer]o PACK, CCL CUSTOM * Used *[id number] 13:14 Fliptop PACER PEN, SKIN DUAL W/ RULER * Used *[id number] 13:42 MEDTRONIC BALLOON, 2.0 X 20MM EUPHORA 20MM Used *[id number] 13:51 MEDTRONIC BALLOON, 2.5 X 10MM EUPHORA 10MM Used *[id number] 14:01 MEDTRONIC BALLOON, 2.5 X 20MM EUPHORA 20MM Used *[id number] 14:04 MEDTRONIC STENT, 3.0 22 INTEGRITY 3.0 22 Used *[id number] 13:37 Bvents 30 MOE INDEFLATOR Used *[id number] 13:14 Bvents WIRE, 3MMJ .035 180CM 180CM Used *[id number] 13:14 NAMIC MANIFOLD, 4 PORT * Used *[id number] 13:14 NYCOMED OMNIPAQUE, 350 MG, 150ML 150ML [id number] Used [id number] 13:14 TERUMO MEDICAL SHEATH, FR4 TERUMO (10CM) FR 4 Used *[id number] 13:38 TERUMO MEDICAL SHEATH, FR6 TERUMO (10CM) FR 6 Used *[id number] Equipment Model, Serial, Lot Number and Expiration Data Description Model Number Serial Number Lot Number Expiration Date STENT, 3.0 22 INTEGRITY [id number] 08-04-2019 WIRE, CHOICE PT 182CM [id number] 01-31-2020 History: Current Medications Medication Dosage/Unit Route Frequency Last Date/Time Taken Beta Teressa Statins (any) ASA PLAVIX NTG Patch History: Allergies Allergy Reaction No Known Allergies Penicillins Dizziness History: Risk Factors Family History of Hypertension Dyslipidemia Previous MO Previous Heart Failure Premature CAD Yes Yes Yes No No Prior Valve Prior PCI Prior CABG Surgery No No No Cerebrovascular Peripheral Artery Chronic Lung On Dialysis Diabetes Disease Disease Disease No No No No No History: Stress Tests Stress or Imaging Studies Performed No History: Other Current Smoker Method Years Used Yes Cigarettes 49 Labs Hgb (g/dl) Hct (%) WBC (l/cumm) Platelets (thousands) 11.60-17.00 35.00-51.00 4.00-11.00 150.00-450.00 13.9 40.6 8.1 164 Glucose (mg/dl) BUN (mg/dl) Creatinine (mg/dl) BUN:Creatinine (1:x) 74.00-106.00 7.00-18.00 0.50-1.30 10.00-20.00 113 18 0.7 25.7 Na (meq/l) K (meq/l) 136.00-145.00 3.50-5.10 143 4.1 INR (PTT:PT) 0.90-1.10 1 Troponin I (ng/ml) CPK (u/l) CPK-MB (ng/ML) 0.02-0.05 26.00-308.00 0.50-3.60 5.45 455 5.8 Medication Medication Total Dose (Bolus/Oral) Medication Total Dosage/Unit 1% XYLOCAINE 20 mL AGGRASTAT BOLUS 44.7 mL FENTANYL 25 mcg HEPARIN 5400 units PLAVIX 600 mg VERSED 1 mg Medications (Bolus/Oral) Medication Time Given Dosage/Unit Administered By Reason VERSED 08/24/2018 1:25:56 PM 1 mg Nas Meza 1 mg VERSED given in lab by Nas Meza RN via Peripheral IV. FENTANYL 08/24/2018 1:26:14 PM 25 mcg Nas Meza 25 mcg FENTANYL given in lab by Nas Meza RN via Peripheral IV. 1% XYLOCAINE 08/24/2018 1:26:21 PM 20 mL Rolf Almazan 20 mL 1% XYLOCAINE given in lab by Rolf Almazan in Right Groin via Subcutaneous. HEPARIN 08/24/2018 1:41:17 PM 5400 units Nas Meza 5400 units HEPARIN given in lab by Nas Meza RN via Peripheral IV. AGGRASTAT BOLUS 08/24/2018 2:09:47 PM 44.7 mL Nas Meza 44.7 mL AGGRASTAT BOLUS given in lab by Nas Meza RN via Peripheral IV. PLAVIX 08/24/2018 2:16:43 PM 600 mg Nas Meza 600 mg PLAVIX given in lab by Nas Meza RN via Oral. Medication (Drip) Medication Time Given Dosage/Unit Concentration/Unit Diluent (ml) Solution AGGRASTAT DRIP 08/24/2018 2:13:55 PM 0.149 mcg/kg/min 12.5 mg 250 NaCl .9 0.149 mcg/kg/min AGGRASTAT DRIP given in lab by Nas Meza RN via Peripheral IV. Pump/Drip Flow = 16 ml/hr using NaCl .9 with a concentration of 12.5 mg in 250 ml. IV Solutions 08/24/2018 1:08:06 PM 0 mL (IV) 1000 NaCl .9 Patient arrived on IV Solutions via Peripheral IV. Pump/Drip Flow = 30 ml/hr using NaCl .9. Initial Case Assessment Cardiovascular HR Rhythm NIBP Chest Pain 72 reg 149/83 0 Edema Present Skin color Skin None Normal Warm Dry Circulatory - Right Pulses Dorsalis Pedis Femoral 2 2 Scale (0,1,2,3,4,d) Circulatory - Left Pulses Dorsalis Pedis Femoral 2 2 Scale (0,1,2,3,4,d) Circulatory - Lower Extremities Color Lower Right Color Lower Left Normal Normal Neurological State Oriented to time-place- Alert Moves all extremities person Respiration - General Respiration Rate SpO2 (%) (B/min) 13 96 Chronological Log Time Study Chronological Log 12:53:09 Patient arrived via Bed. 12:53:13 Patient Name, D.O.B, / Armband Verified By R.N. 13:07:19 Consent signed by the physician and the patient and verified by the Human Resources Assistant staff. 13:07:20 Pre-op and post- op instructions given; patient acknowledges understanding of instructions. 13:08:01 Patient has been NPO for More than 6Hrs. 13:08:02 Patient Warmer Placed on the Table. 13:08:03 Otoniel Prominences Protected 13:08:05 A # 20 IV was noted in the Antecubital (left). Grade = 0 13:08:06 Patient arrived on IV Solutions via Peripheral IV. Pump/Drip Flow = 30 ml/hr using NaCl .9. 13:08:06 History and physical on the chart or being dictated. Assessment: Initial Case, HR=72 BPM, Rhythm=reg, DHFD=575/83 mmhg, Chest Pain=0, Edema=None, Co allen=Normal, Skin = Warm, Dry Right Pulses: Ryan Ped=2, Femoral=2 Left Pulses: Ryan Ped=2, Femoral=2 13:08:07 Lower Right Extremities: Color=Normal Lower Left Extremities: Color=Normal Neurological: State=Alert, Ox3, RODRIGUEZ Respiration: Resp=13 B/min, SpO2=96 % Vitals capture started with the following parameters, Patient=Adult, Interval=5 min, Initial Pr hmbwuz=816 mmHg, 13:10:07 Deflation Rate=5 mmHg, Cuff placed on Left Arm 13:11:18 HR=70 bpm, XEOS=099/83 mmhg, SpO2=97.0 %, Resp=12 B/min, Pain=0, Kameron=10, Ray=2 13:12:16 Bilateral groins prepped with 2% chlorhexidine, and draped after a 3 minute waiting time. 13:14:44 Reference ECG taken 13:16:30 HR=71 bpm, NWJJ=617/100 mmhg, SpO2=96.0 %, Resp=18 B/min, Pain=0, Kameron=10, Ray=2 13:18:52 Pressure channel 1 zeroed. 13:19:31 MD paged 13:19:49 MD responded 13:20:48 HR=67 bpm, DSKG=258/98 mmhg, SpO2=96.0 %, Resp=19 B/min, Pain=0, Kameron=10, Ray=2 13:22:07 MD arrived. 13:25:47 HR=71 bpm, NVYY=369/99 mmhg, SpO2=97.0 %, Resp=15 B/min, Pain=0, Kameron=10, Ray=2 Time Out. Correct patient, correct procedure, correct physician, labs, allergies, and equipment verified with laboratory technologist 13:25:54 team present. Fire risk assesment completed (see hard stop sheet for coding). Time Out Conc urred by MD and individual staff in procedure. 13:25:56 1 mg VERSED given in lab by Nas Meza RN via Peripheral IV. 13:26:01 Case Start 13:26:14 25 mcg FENTANYL given in lab by Nas Meza RN via Peripheral IV. 13:26:21 20 mL 1% XYLOCAINE given in lab by Rolf Almazan in Right Groin via Subcutaneous. 13:30:33 Access site was Right Femoral Artery. 13:30:43 A SHEATH, FR4 TERUMO (10CM) FR 4 was advanced into the Fem Art (right) using the Percutaneo us technique. 13:30:48 HR=72 bpm, TGEW=785/90 mmhg, SpO2=96.0 %, Resp=15 B/min, Pain=0, Kameron=10, Ray=2 A JR 4.0 INFINITI CATHETER FR 4 was advanced over a wire. OMNIPAQUE, 350 MG, 150ML 150ML was us ed for 13:31:20 injections. Recorded Pressure: LV, HR=70, Condition=Condition 1 13:31:45 (Left Ventricle) LV 172/10/17 13:32:04 The LV was manually injected with 8 cc's and visualized. OMNIPAQUE, 350 MG, 150ML 150ML use d. Recorded Pressure: LV, Ao, HR=67, Condition=Condition 1 13:32:11 (Left Ventricle) LV 171/12/16, (Aorta) Ao 137/70/97 13:32:39 The RCA was injected and visualized at various angles. OMNIPAQUE, 350 MG, 150ML 150ML used . Recorded Pressure: Ao, HR=67, Condition=Condition 1 13:32:44 (Aorta) Ao 138/76/100 After removing the current catheter a JL 4.0 INFINITI CATHETER FR 4 was advanced over a WIRE, 3 MMJ .035 180CM 13:34:26 180CM. 13:35:38 The LCA was injected and visualized at various angles. OMNIPAQUE, 350 MG, 150ML 150ML used . 13:35:51 HR=68 bpm, VXIZ=934/86 mmhg, SpO2=93.0 %, Resp=14 B/min, Pain=0, Kameron=10, Ray=2 13:37:03 OMNIPAQUE, 350 MG, 150ML 150ML and 30 MOE INDEFLATOR added. 13:37:05 Activated Clotting Time Drawn A SHEATH, FR6 TERUMO (10CM) FR 6 was exchanged in the Fem Art (right). This was necessary in or polo to 13:38:04 accomodate a larger catheter. After removing the current catheter a JR 4.0 GUIDE CATHETER FR 6 was advanced over a WIRE, 3MMJ .035 180CM 13:40:02 180CM. 13:40:30 ACT (Normal Range 90-180) = 146 13:40:46 HR=69 bpm, VZHR=112/84 mmhg, SpO2=92.0 %, Resp=15 B/min, Pain=0, Kameron=10, Ray=2 13:41:17 5400 units HEPARIN given in lab by Nas Meza, RN via Peripheral IV. 13:42:13 A WIRE, ASAHI PROWATER 180CM 180CM was inserted via Fem Art (right). A BALLOON, 2.0 X 20MM EUPHORA 20MM was inserted over WIRE, ASAHI PROWATER 180CM 180CM via the F em Art 13:43:12 (right). 13:45:49 HR=73 bpm, FWOI=869/85 mmhg, SpO2=94.0 %, Resp=18 B/min, Pain=0, Kameron=10, Ray=2 13:47:42 Balloon Removed 13:47:53 Wire removed 13:48:28 Activated Clotting Time Drawn 13:48:32 A WIRE, CHOICE PT 182CM 182CM was inserted via Fem Art (right). 13:50:36 A BALLOON, 2.5 X 10MM EUPHORA 10MM was inserted over WIRE, CHOICE PT 182CM 182CM via the Fe m Art (right). 13:50:48 HR=72 bpm, LVJE=387/86 mmhg, SpO2=93.0 %, Resp=11 B/min, Pain=0, Kameron=10, Ray=2 13:53:19 Balloon Removed 13:53:27 Wire removed 13:53:36 Catheter was removed 13:53:38 ACT (Normal Range 90-180) = 262 A XB 4.0 GUIDE CATHETER FR 6 was advanced over a wire. OMNIPAQUE, 350 MG, 150ML 150ML was used for 13:54:17 injections. 13:55:57 A WIRE, ASAHI PROWATER 180CM 180CM was inserted via Fem Art (right). 13:56:30 HR=69 bpm, BBIE=167/88 mmhg, SpO2=94.0 %, Resp=18 B/min, Pain=0, Kameron=10, Ray=2 13:57:42 Wire removed 13:57:48 A WIRE, ASAHI PROWATER 180CM 180CM was inserted via Fem Art (right). A BALLOON, 2.5 X 20MM EUPHORA 20MM was inserted over WIRE, ASAHI PROWATER 180CM 180CM via the F em Art 14:00:00 (right). 14:00:48 HR=67 bpm, FRVF=581/83 mmhg, SpO2=92.0 %, Resp=17 B/min, Pain=0, Kameron=10, Ray=2 A BALLOON, 2.5 X 20MM EUPHORA 20MM over a WIRE, ASAHI PROWATER 180CM 180CM in the OM1 Mid was i nflated 14:02:04 using a 30 MOE INDEFLATOR at 8 moe for 15 sec. 14:02:37 Balloon Removed An STENT, 3.0 22 INTEGRITY 3.0 22 Bare Metal Stent was inserted through a XB 4.0 GUIDE CATHETER FR 6 over a 14:03:45 WIRE, ASAHI PROWATER 180CM 180CM. A STENT, 3.0 22 INTEGRITY 3.0 22 was deployed using a 30 MOE INDEFLATOR at 11 atmospheres for 1 5 seconds in 14:04:46 the OM1 Mid. 14:05:49 HR=64 bpm, CSEZ=410/93 mmhg, SpO2=96.0 %, Resp=11 B/min, Pain=0, Kameron=10, Ray=2 14:06:25 Delivery device removed 14:06:31 Catheter was removed 14:06:38 Wire removed 14:06:43 Case End (Physician broke scrub) 14:07:31 [facility] called. Spoke to Yoselin. Advised a-line needed. 14:08:12 Catheter(s) removed without difficulty 14:08:16 In the Fem Art (right) the SHEATH, FR6 TERUMO (10CM) FR [address] by Emmanuel Hendrickson RT(R). 14:08:41 No case complications noted. 14:08:50 Bedside Report will be given. 14:09:10 A Left Heart Cath was performed. 14:09:47 44.7 mL AGGRASTAT BOLUS given in lab by Nas Meza RN via Peripheral IV. 14:10:52 HR=67 bpm, KGDN=380/99 mmhg, SpO2=96.0 %, Resp=14 B/min, Pain=0, Kameron=10, Ray=2 14:11:00 Sterile dressing applied to site 0.149 mcg/kg/min AGGRASTAT DRIP given in lab by Nas Meza RN via Peripheral IV. Pump/Drip Flow = 16 ml/hr 14:13:55 using NaCl .9 with a concentration of 12.5 mg in 250 ml. 14:15:51 Vitals capture stopped. 14:16:43 600 mg PLAVIX given in lab by Nas Meza RN via Oral. 14:20:40 Patient moved to [facility] End Study - Contrast Media Used In Study Contrast Total Opened (mL) Total Used (mL) Total Wasted (mL) Omnipaque 130 130 0 End Study - Maximum Contrast Load Max Contrast Load (mL) 638.0 End Study - Radiation Exposure Fluoro Time (minutes) 12.1 End Study - Patient Disposition Complications Transferred To Interventional Outcome No Telemetry Bed a partial success
[2018-08-24] MEDS ORDERED: Misc Info for Pharmacy OTHER STA (14:37)
[2018-08-24] MEDS ORDERED: TIROFIBAN BOLUS IV.PUSH ONE (14:37)
[2018-08-24] MEDS ORDERED: Tirofiban Inj 12,500 MCG/250 ML PLAST..BAG IV.CONT SCH (15:00)
--- NOTE | 2018-08-24 15:47 | MR ---
cc: Rolf Almazan MD DATE: 08/24/2018 PROCEDURE PERFORMED: Left heart catheterization, left ventriculography, coronary angiography, percutaneous coronary intervention with a bare-metal stent of the obtuse marginal vessel. A tentative PCI of the right coronary artery. INDICATION: Non-STEMI coronary artery disease. DETAILS OF PROCEDURE: The patient was brought to the cardiac catheterization laboratory, prepped and draped in the usual sterile fashion, 10 mL of 1% lidocaine was used to locally anesthetize the right common femoral artery. A 4-Mauritanian sheath was placed in right common femoral artery. A 4-Mauritanian JR4 and JL4 catheters were used to perform left and right coronary angiography, left ventriculography. FINDINGS: The LV pressure is 160/10-11, ejection fraction is 50%. Right coronary artery is large and dominant. Mild to moderate diffuse disease in the proximal segment up to 30-40% angiographically. Mid segment has 30-40% stenosis, then sequential 40-50% stenosis, then a long 99% stenosis with KELSEY 2 flow into the distal right coronary artery. The right PDA and right LUCITA are small vessels. Estimated vessel diameter is probably 1 mm. Left main coronary artery has no significant disease angiographically. The left circumflex vessel has mild disease in the proximal segment up to 20-30% angiographically. First obtuse marginal vessel is a large vessel. It bifurcates in the proximal segment. The more lateral branch has a long 95% stenosis. This vessel then approaches the apex. Proximal vessel diameter 3 mm. The more medial branch is a 3 mm vessel with no significant obstructive disease. The LAD is fibrocalcific fluoroscopically, LAD is a proximal 30% stenosis. At the first diagonal artery, there is a 50% stenosis followed by a long 60% to possibly 70% stenosis. First diagonal artery is a medium size vessel, reference vessel diameter 2.75 mm, proximal 30% stenosis. There is left to right collaterals to the right PDA. The right PDA is about a 1 mm vessel, reference vessel diameter. Initial ACT 162, heparin was given and final ACT 262. A 6-Mauritanian sheath replaced with a 4-Mauritanian sheath 6-Mauritanian JL4 guide and a 0.014 [place] Guidewire were attempted to cross the mid right coronary stenosis. I was not able to cross with the 0.014 [place] Guidewire even with a balloon for support. I then tried to cross the lesion with an 0.014 ChoICE PT floppy wire, was also unsuccessful. I also tried using a balloon for support, again was not successful. It was unclear whether the angulation of the wire tip was hitting a plaque shelf versus a severe vessel stenosis. Angiographically appeared that there was an antegrade pathway; however, there was KELSEY 2 flow beyond the lesion, suggesting a very high-grade lesion. Also, I could not cross the lesion with the balloon itself. We then ceased attempted percutaneous coronary intervention of the right coronary artery as the right LUCITA PDA were small 1 mm vessels and the vessel was collateralized from the left. I did not think it was medically necessary to consider bypass at this point in time, the patient is asymptomatic as well. We then used a 6-Mauritanian XB 4.0 guidewire crossed the obtuse marginal vessel, lateral branch, predilated with a balloon inflation 8 atmospheres for 20 seconds. I then placed a 3-0 Integrity stent with 1 inflation at 12 atmospheres for 20 seconds. Stenosis went from 95% to 0% with KELSEY 3 flow. CONCLUSIONS: 1. [id number] myocardial infarction. Somewhat indeterminate culprit probably the right coronary artery, although there is also high-grade disease in a lateral branch of the first obtuse marginal vessel and the right was completely collateralized, suggesting that a more acute lesion was probably the marginal. 2. Unsuccessful PCI of the right coronary artery as detailed above. 3. Successful PCI bare metal stent of the posterolateral branch and first obtuse marginal vessel for 95% to 0% with KELSEY 3 flow. 4. Low normal left ventricular systolic function, discharge 50%. 5. Successful PCI of the lateral branch of first obtuse marginal vessel for 95% to 0% with KELSEY [address] him on Plavix 600 mg p.o. load and 75 mg a day for 12-15 months, aspirin 162 mg daily, statin per NCEP guidelines, beta adriana and JOHN inhibitors clinically and hemodynamically tolerated. MD TESHA Vallecillo/dave/spencer , 02:36 PM , 02:50 PM
--- NOTE | 2018-08-24 16:44 | P.PNIM ---
Subjective Interval history: The patient was resting in bed. He wanted to know if the heart blockages were why he had shortness of breath. He had no other acute concerns. Discussed with nursing. Physical Exam Vital signs: Vital Signs 08/23/18 17:00 08/23/18 17:21 08/23/18 18:00 Temperature Pulse Rate 68 68 Respiratory Rate Blood Pressure Pulse Oximetry 95 08/23/18 22:00 08/23/18 23:00 08/24/18 00:00 Temperature 97.7 F Pulse Rate 68 70 64 Respiratory Rate 16 16 Blood Pressure 157/91 H Pulse Oximetry 97 08/24/18 00:05 08/24/18 01:00 08/24/18 02:00 Temperature Pulse Rate 60 62 Respiratory Rate 16 Blood Pressure Pulse Oximetry 08/24/18 03:00 08/24/18 04:00 08/24/18 05:00 Temperature 97.7 F Pulse Rate 70 63 67 Respiratory Rate 16 Blood Pressure 149/95 H Pulse Oximetry 96 08/24/18 06:00 08/24/18 07:00 08/24/18 08:00 Temperature 97.6 F Pulse Rate 61 65 61 Respiratory Rate 12 Blood Pressure 144/85 H Pulse Oximetry 08/24/18 09:00 08/24/18 10:00 08/24/18 11:00 Temperature 97.7 F Pulse Rate 77 70 65 Respiratory Rate 20 Blood Pressure 154/92 H Pulse Oximetry 08/24/18 12:00 Temperature Pulse Rate 66 Respiratory Rate Blood Pressure Pulse Oximetry Intake & Output 08/23/18 08/24/18 08/24/18 18:59 06:59 18:59 Intake Total 2650 / 2650 1240 / 1240 15 Output Total 340 / 340 400 / 400 Balance 2310 / 2310 840 / 840 15 15 Weight 89.3 kg Intake: IV 1250 / 1250 1000 / 1000 15 / 15 Heparin/NS PF Inj 1,500 ML @ 0 15 / 15 mls/hr .ROUTE .STK-MED ONE Rx#: [id number] Heparin/D5W 25,000 U/250 mL 25, 250 / 250 000 unit In 250 ml @ Per Protocol IV.CONT TITRATE PRN Rx #:[id number] NS Inj 1,000 ML @ 70 mls/hr IV. 1000 / 1000 1000 / 1000 CONT .[id number] [facility] Rx#:[id number] Oral 1400 / 1400 240 / 240 Output: Urine 340 / 340 400 / 400 Other: # Voids 3 Date of Last Bowel Movement 08/23/18 # Bowel Movements 0 Narrative: GENERAL: No acute distress SKIN: Warm and dry. No rashes HEAD: Atraumatic, normocephalic. EYES: No scleral icterus. No injection or drainage. ENT: Moist mucous membranes, patent nares, no erythema of oropharynx. NECK: Supple, trachea midline. No JVD or lymphadenopathy. Normal thyroid. CARDIOVASCULAR: Regular rate and rhythm. 3/6 LUCINDA, no gallops, or rubs. RESPIRATORY: Breath sounds clear equal bilaterally. No crackles or wheezes. No accessory muscle use. GASTROINTESTINAL: Abdomen soft, non-tender, nondistended, normal active bowel sounds MUSCULOSKELETAL: No cyanosis, or edema. NEURO: CN II-XII grossly intact, no focal deficits, no slurring of speech Results - Labs CBC & Chem 7: 08/24/18 04:23 08/23/18 05:31 Laboratory Results - last 24 hr 08/23/18 08/23/18 08/24/18 22:31 22:31 04:23 WBC 8.1 RBC 4.37 L Hgb 13.9 Hct 40.6 MCV 93.1 MCH 31.9 MCHC 34.3 RDW 13.7 Plt Count 164 MPV 9.6 APTT 42.1 H Troponin I 5.45 H* 08/24/18 04:23 WBC RBC Hgb Hct MCV MCH MCHC RDW Plt Count MPV APTT 46.5 H Troponin I Assessment and Plan - Plan NSTEMI Initial troponin 1.41 on admission, normal EKG EKG without signs of ischemia, personally reviewed Troponin level bumped up to 11.4, patient is currently asymptomatic S/p heparin bolus and drip Patient reports history of previous cardiac catheterization without intervention however is on Plavix Cardiology consult appreciated. Successful PCI bare metal stent of the posterolateral branch and first obtuse marginal vessel 08/24. -continue cardiac regimen. -telemetry. Shortness of breath/elevated d-dimer CTA shows no evidence pulmonary embolism -treatment as above. CAD/hypertension/hyperlipidemia -Continue home medications DVT prophylaxis: per cards
[2018-08-24] MEDS: Acetaminophen 325 MG Tablet PO PRN (22:32)
[2018-08-25 05:11] LABS: Baso % (Auto) 0.4 % (0.0-2.0); Eos # (Auto) 0.1 th/mm3 (0.0-0.4); Eos % (Auto) 1.8 % (0.0-4.0); Hematocrit 42.7 % (39.0-51.0); Hemoglobin 14.5 gm/dL (13.0-17.0); Lymph # (Auto) 1.8 th/mm3 (1.0-4.8); Lymph % (Auto) 22.8 % (9.0-44.0); Mean Corpuscular Hemoglobin 31.9 pg (27.0-34.0); Mean Corpuscular Volume 93.7 fL (80.0-100.0); Mean Platelet Volume 9.1 fL (7.0-11.0); Mono # (Auto) 0.7 th/mm3 (0.0-0.9); Mono % (Auto) 8.4 % (0.0-8.0); Neut # (Auto) 5.2 th/mm3 (1.8-7.7); Neut % (Auto) 66.6 % (16.0-70.0); Platelet Count 182 th/mm3 (150-450); Red Blood Count 4.56 mil/mm3 (4.50-5.90); Red Cell Distribution Width 13.8 % (11.6-17.2); White Blood Count 7.8 th/mm3 (4.0-11.0)
[2018-08-25 05:36] LABS: Anion Gap 9 meq/L (5-15); Calcium 8.5 mg/dL (8.5-10.1); Carbon Dioxide 28.5 meq/L (21.0-32.0); Chloride 104 meq/L (98-107); Cholesterol 172 mg/dL (120-200); Glomerular Filtration Rate Greater Than 89 mL/min (>89); Glucose,Random 123 mg/dL (74-106); Magnesium 2.2 mg/dL (1.5-2.5); Phosphorus 4.1 mg/dL (2.5-4.9); Potassium 3.7 meq/L (3.5-5.1); Sodium 141 meq/L (136-145)
[2018-08-25 05:43] LABS: Blood Urea Nitrogen 12 mg/dL (7-18); Chol/HDL Ratio 4.42 Ratio; Creatine Kinase 96 U/L (39-308); HDL Cholesterol 38.9 mg/dL (40.0-60.0); LDL Cholesterol,Calculated 88 mg/dL (0-99); Triglycerides 228 mg/dL (42-150)
[2018-08-25] MEDS: Sod Chloride 0.9% Inj 1,000 ML IV.CONT SCH (08:16)
[2018-08-25 08:21] VITALS: RESP 17
[2018-08-25] MEDS ORDERED: Lisinopril 5 MG Tablet PO SCH (09:00)
[2018-08-25] MEDS: Metoprolol Tartrate 25 MG Tablet PO SCH (09:45)
--- NOTE | 2018-08-25 10:20 | P.PNIM ---
Subjective Interval history: The patient was feeling well. His family was at the bedside. He denied any chest pain or shortness of breath. He denied any discomfort at the catheterization site. Physical Exam Vital signs: Vital Signs 08/24/18 11:00 08/24/18 12:00 08/24/18 13:00 Temperature 97.7 F Pulse Rate 65 66 65 Respiratory Rate 20 Blood Pressure 154/92 H Pulse Oximetry 08/24/18 14:30 08/24/18 15:00 08/24/18 16:00 Temperature Pulse Rate 66 62 62 Respiratory Rate 20 Blood Pressure 159/74 H Pulse Oximetry 08/24/18 17:00 08/24/18 18:00 08/24/18 19:00 Temperature 97.6 F Pulse Rate 60 70 73 Respiratory Rate 18 Blood Pressure 124/72 Pulse Oximetry 08/24/18 20:00 08/24/18 21:00 08/24/18 22:00 Temperature Pulse Rate 80 78 76 Respiratory Rate Blood Pressure Pulse Oximetry 08/24/18 23:00 08/25/18 00:00 08/25/18 01:00 Temperature 97.8 F Pulse Rate 62 68 64 Respiratory Rate 16 18 Blood Pressure 124/74 Pulse Oximetry 08/25/18 02:00 08/25/18 03:00 08/25/18 04:00 Temperature 97.0 F L Pulse Rate 70 66 64 Respiratory Rate 18 Blood Pressure 113/68 Pulse Oximetry 08/25/18 05:00 08/25/18 06:00 08/25/18 08:19 Temperature Pulse Rate 68 68 Respiratory Rate Blood Pressure Pulse Oximetry 95 08/25/18 08:20 Temperature 97.8 F Pulse Rate 71 Respiratory Rate 17 Blood Pressure 129/81 Pulse Oximetry 95 Intake & Output 08/24/18 08/25/18 08/25/18 18:59 06:59 18:59 Intake Total 1505 / 1505 240 / 240 250 / 250 Output Total 450 / 450 Balance 1505 / 1505 -210 / -210 250 / 250 Weight 88 kg Intake: IV 1265 / 1265 250 / 250 Heparin/NS PF Inj 1,500 ML @ 0 15 / 15 mls/hr .ROUTE .ST-MED ONE Rx#: [id number] Heparin/D5W 25,000 U/250 mL 25, 250 / 250 000 unit In 250 ml @ Per Protocol IV.CONT TITRATE PRN Rx #:[id number] NS Inj 1,000 ML @ 70 mls/hr IV. 1000 / 1000 CONT .[id number] [facility] Rx#:[id number] Aggrastat Inj 12,500 mcg In 250 200 / 200 ml @ Per Protocol IV.CONT .Q0M [facility] Rx#:[id number] Oral 240 / 240 240 / 240 Output: Urine 450 / 450 Other: Date of Last Bowel Movement 08/22/18 08/24/18 # Bowel Movements 0 Narrative: GENERAL: No acute distress SKIN: Warm and dry. No rashes HEAD: Atraumatic, normocephalic. EYES: No scleral icterus. No injection or drainage. ENT: Moist mucous membranes, patent nares, no erythema of oropharynx. NECK: Supple, trachea midline. No JVD or lymphadenopathy. Normal thyroid. CARDIOVASCULAR: Regular rate and rhythm. 3/6 LUCINDA, no gallops, or rubs. RESPIRATORY: Breath sounds clear equal bilaterally. No crackles or wheezes. No accessory muscle use. GASTROINTESTINAL: Abdomen soft, non-tender, nondistended, normal active bowel sounds MUSCULOSKELETAL: No cyanosis, or edema. Cath site is nontender, no induration, no signs of infection. NEURO: CN II-XII grossly intact, no focal deficits, no slurring of speech Results - Labs CBC & Chem 7: 08/25/18 04:38 08/25/18 04:38 Laboratory Results - last 24 hr 08/25/18 08/25/18 04:38 04:38 WBC 7.8 RBC 4.56 Hgb 14.5 Hct 42.7 MCV 93.7 MCH 31.9 MCHC 34.0 RDW 13.8 Plt Count 182 MPV 9.1 Neut % (Auto) 66.6 Lymph % (Auto) 22.8 [place] % (Auto) 8.4 H Eos % (Auto) 1.8 Baso % (Auto) 0.4 Neut # (Auto) 5.2 Lymph # (Auto) 1.8 [place] # (Auto) 0.7 Eos # (Auto) 0.1 Baso # (Auto) 0.0 WBC Differential . Differential Comment Auto diff final Sodium 141 Potassium 3.7 Chloride 104 Carbon Dioxide 28.5 Anion Gap 9 BUN 12 Creatinine 0.75 Estimated GFR Greater than 89 Random Glucose 123 H Calcium 8.5 Phosphorus 4.1 Magnesium 2.2 Total Creatine Kinase 96 Triglycerides 228 H Cholesterol 172 LDL Cholesterol, Calc 88 HDL Cholesterol 38.9 L Cholesterol/HDL Ratio 4.42 Assessment and Plan - Plan NSTEMI Initial troponin 1.41 on admission, normal EKG EKG without signs of ischemia, personally reviewed Troponin level bumped up to 11.4, patient is currently asymptomatic S/p heparin bolus and drip Patient reports history of previous cardiac catheterization without intervention however is on Plavix Cardiology consult appreciated. Successful PCI bare metal stent of the posterolateral branch and first obtuse marginal vessel 08/24. -continue cardiac regimen including ASA, Plavix, beta adriana, ACEi and statin. -telemetry. -outpt follow-up with cardiology. Shortness of breath/elevated d-dimer CTA shows no evidence pulmonary embolism -treatment as above. CAD/hypertension/hyperlipidemia -Continue home medications DVT prophylaxis: per cards Discharge Planning: D/c home when cleared by cardiology
--- NOTE | 2018-08-25 14:27 | P.DS ---
Date of admission: 08/22/18 19:32 Primary care physician: Ronny Loving Anticipated date of discharge: 08/25/18 Brief History from admission: 68-year-old male with a past medical history significant for coronary artery disease status post GA, hypertension and hyperlipidemia presents the emergency department for evaluation of chest pain. The patient reports that the chest pain started yesterday he describes it as substernal and radiating to his left arm into his back. He was seen in the emergency department yesterday for facial swelling and given steroids and Benadryl with improvement of his symptoms. He returned to the emergency department today for worsening chest pain with accompanying shortness of breath. He denies any fever/chills. No headaches. No nausea/vomiting/diarrhea. No abdominal pain. No lateralizing signs/symptoms. DS: Diagnosis - Discharge Diagnosis (1) Non-ST elevation (NSTEMI) myocardial infarction Status: Acute DS: Medications - Discharge Medications Prescriptions: clopidogrel [Plavix] 75 mg PO DAILY #30 tab lisinopril 5 mg PO DAILY #30 tab metoprolol tartrate 25 mg PO BID #60 tab simvastatin [Zocor] 40 mg PO QPM #30 tab DS: Summary Hospital Course: NSTEMI Initial troponin 1.41 on admission. EKG without signs of ischemia. Troponin level bumped up to 11.4. S/p heparin bolus and drip. Patient reports history of previous cardiac catheterization without intervention, however, is on Plavix. Cardiology was consulted. S/p catheterization: Successful PCI bare metal stent of the posterolateral branch and first obtuse marginal vessel 08/24. He was continued on a cardiac regimen including ASA, Plavix, beta adriana, ACEi and statin. He was monitored on telemetry. He will have outpt follow-up with cardiology. Shortness of breath/elevated d-dimer CTA shows no evidence pulmonary embolism. He received treatment as above and his symptoms improved. - Time Spent with Patient Total time spent providing and/or coordinating discharge services: Less than 30 minutes - Quality: VTE Deep Vein Thrombosis/Pulmonary Embolism Present on Admission: No Exam Vital signs: Vital Signs 08/24/18 14:30 08/24/18 15:00 08/24/18 16:00 Temperature Pulse Rate 66 62 62 Respiratory Rate 20 Blood Pressure 159/74 H Pulse Oximetry 08/24/18 17:00 08/24/18 18:00 08/24/18 19:00 Temperature 97.6 F Pulse Rate 60 70 73 Respiratory Rate 18 Blood Pressure 124/72 Pulse Oximetry 08/24/18 20:00 08/24/18 21:00 08/24/18 22:00 Temperature Pulse Rate 80 78 76 Respiratory Rate Blood Pressure Pulse Oximetry 08/24/18 23:00 08/25/18 00:00 08/25/18 01:00 Temperature 97.8 F Pulse Rate 62 68 64 Respiratory Rate 16 18 Blood Pressure 124/74 Pulse Oximetry 08/25/18 02:00 08/25/18 03:00 08/25/18 04:00 Temperature 97.0 F L Pulse Rate 70 66 64 Respiratory Rate 18 Blood Pressure 113/68 Pulse Oximetry 08/25/18 05:00 08/25/18 06:00 08/25/18 07:00 Temperature Pulse Rate 68 68 74 Respiratory Rate Blood Pressure Pulse Oximetry 08/25/18 08:00 08/25/18 08:19 08/25/18 08:20 Temperature 97.8 F Pulse Rate 68 71 Respiratory Rate 17 Blood Pressure 129/81 Pulse Oximetry 95 95 08/25/18 09:00 08/25/18 10:00 08/25/18 11:00 Temperature Pulse Rate 80 76 72 Respiratory Rate Blood Pressure Pulse Oximetry Intake & Output 08/24/18 08/25/18 08/25/18 18:59 06:59 18:59 Intake Total 1505 / 1505 240 / 240 250 / 250 Output Total 450 / 450 Balance 1505 / 1505 -210 / -210 250 / 250 Weight 88 kg Intake: IV 1265 / 1265 250 / 250 Heparin/NS PF Inj 1,500 ML @ 0 15 / 15 mls/hr .ROUTE .STK-MED ONE Rx#: [id number] Heparin/D5W 25,000 U/250 mL 25, 250 / 250 000 unit In 250 ml @ Per Protocol IV.CONT TITRATE PRN Rx #:[id number] NS Inj 1,000 ML @ 70 mls/hr IV. 1000 / 1000 CONT .[id number] [facility] Rx#:[id number] Aggrastat Inj 12,500 mcg In 250 200 / 200 ml @ Per Protocol IV.CONT .Q0M [facility] Rx#:[id number] Oral 240 / 240 240 / 240 Output: Urine 450 / 450 Other: Date of Last Bowel Movement 08/22/18 08/24/18 # Bowel Movements 0 Results Procedures completed during hospitalization: Cardiac catheterization Labs on day of discharge: Labs from last 24 hours 08/25/18 08/25/18 04:38 04:38 WBC 7.8 RBC 4.56 Hgb 14.5 Hct 42.7 MCV 93.7 MCH 31.9 MCHC 34.0 RDW 13.8 Plt Count 182 MPV 9.1 Neut % (Auto) 66.6 Lymph % (Auto) 22.8 [place] % (Auto) 8.4 H Eos % (Auto) 1.8 Baso % (Auto) 0.4 Neut # (Auto) 5.2 Lymph # (Auto) 1.8 [place] # (Auto) 0.7 Eos # (Auto) 0.1 Baso # (Auto) 0.0 WBC Differential . Differential Comment Auto diff final Sodium 141 Potassium 3.7 Chloride 104 Carbon Dioxide 28.5 Anion Gap 9 BUN 12 Creatinine 0.75 Estimated GFR Greater than 89 Random Glucose 123 H Calcium 8.5 Phosphorus 4.1 Magnesium 2.2 Total Creatine Kinase 96 Triglycerides 228 H Cholesterol 172 LDL Cholesterol, Calc 88 HDL Cholesterol 38.9 L Cholesterol/HDL Ratio 4.42 - Impressions ITS Impressions Chest CTA 08/22/18 00:00 CONCLUSION: 1. No pulmonary embolus. 2. Mild atelectasis of both lung bases. 3. Coronary artery calcification. Chest X-Ray 08/22/18 17:53 CONCLUSION: Minimal left base atelectasis. Otherwise negative. Discharge Plan - Discharge Disposition Patient Disposition: Discharge Home - Discharge Condition Condition: Stable - Discharge Order Discharge Orders: Discharge Order (Routine); Ordered 08/25/18 Ordered By: Harman Maloney Cardiology Clear for Discharge (Routine); Ordered 08/25/18 Ordered By: Rolf Almazan - Discharge Details Anticipated Discharge Date: 08/25/18 - Physicians Team Primary Care Provider: Ronny Loving Attending Provider: Harman Maloney Other Providers: Rolf Almazan MD
[2018-08-25 14:31] VITALS: PULSE 79
[2018-08-25 14:38] VITALS: BP 127/83; TEMP 97.9; O2SAT 94
--- NOTE | 2018-08-25 18:05 | P.PNCA ---
Subjective Interval history: alert in nad, assymptomatic Medications and Allergies Active Medications: Active Medications Acetaminophen (Tylenol) 650 mg PO Q4H PRN PRN Reason: Temp > 100.4/pain Last Admin: 08/24/18 22:32 Dose: 650 mg Aspirin (Aspirin Chew) 81 mg PO DAILY [facility] Last Admin: 08/25/18 09:45 Dose: 81 mg Bisacodyl (Dulcolax Supp) 10 mg RECTAL DAILY PRN PRN Reason: SEVERE CONSITIPATION Clopidogrel Bisulfate (Plavix) 75 mg PO DAILY [facility] Last Admin: 08/25/18 09:45 Dose: 75 mg Sodium Chloride (Ns Inj) 1,000 mls @ 70 mls/hr IV.CONT .[id number] [facility] Last Admin: 08/25/18 08:16 Dose: Not Given Lisinopril (Prinivil) 5 mg PO DAILY [facility] Last Admin: 08/25/18 09:45 Dose: 5 mg Metoprolol Tartrate (Lopressor) 25 mg PO BID [facility] Last Admin: 08/25/18 09:45 Dose: 25 mg Ondansetron HCl (Zofran Inj) 4 mg IV.PUSH Q6H PRN PRN Reason: NAUSEA OR VOMITING Pravastatin Sodium (Pravachol) 80 mg PO QPM [facility] Last Admin: 08/24/18 17:58 Dose: 80 mg Sennosides (Senokot) 17.2 mg PO Q12H PRN PRN Reason: Moderate Constipation Sodium Chloride (Ns Flush) 2 ml IV.FLUSH BID [facility] Last Admin: 08/25/18 09:45 Dose: 2 ml Sodium Chloride (Ns Flush) 2 ml IV.FLUSH PRN PRN PRN Reason: FLUSH AFTER USING IV ACCESS Temazepam (Restoril) 15 mg PO HS PRN PRN Reason: INSOMNIA Last Admin: 08/24/18 22:32 Dose: 15 mg Allergies Allergy/AdvReac Type Severity Reaction Status Date / Time Penicillins Allergy Dizziness Verified 08/23/18 23:31 Home Medications Medication Instructions Recorded Confirmed Type aspirin 81 mg PO DAILY 08/22/18 08/22/18 History Physical Exam Vital signs: Vital Signs 08/24/18 19:00 08/24/18 20:00 08/24/18 21:00 Temperature 97.6 F Pulse Rate 73 80 78 Respiratory Rate 18 Blood Pressure 124/72 Pulse Oximetry 10/03/18 22:00 08/24/18 23:00 08/25/18 00:00 Temperature 97.8 F Pulse Rate 76 62 68 Respiratory Rate 16 18 Blood Pressure 124/74 Pulse Oximetry 08/25/18 01:00 08/25/18 02:00 08/25/18 03:00 Temperature 97.0 F L Pulse Rate 64 70 66 Respiratory Rate 18 Blood Pressure 113/68 Pulse Oximetry 08/25/18 04:00 08/25/18 05:00 08/25/18 06:00 Temperature Pulse Rate 64 68 68 Respiratory Rate Blood Pressure Pulse Oximetry 08/25/18 07:00 08/25/18 08:00 08/25/18 08:19 Temperature Pulse Rate 74 68 Respiratory Rate Blood Pressure Pulse Oximetry 95 08/25/18 08:20 08/25/18 09:00 08/25/18 10:00 Temperature 97.8 F Pulse Rate 71 80 76 Respiratory Rate 17 Blood Pressure 129/81 Pulse Oximetry 95 08/25/18 11:00 08/25/18 12:00 08/25/18 13:00 Temperature 97.9 F Pulse Rate 71 68 78 Respiratory Rate 17 Blood Pressure 127/83 Pulse Oximetry 94 L 08/25/18 14:00 Temperature Pulse Rate 79 Respiratory Rate Blood Pressure Pulse Oximetry Intake & Output 08/24/18 08/25/18 08/25/18 18:59 06:59 18:59 Intake Total 1505 / 1505 240 / 240 730 / 730 Output Total 450 / 450 400 / 400 Balance 1505 / 1505 -210 / -210 330 / 330 Weight 88 kg Intake: IV 1265 / 1265 250 / 250 Heparin/NS PF Inj 1,500 ML @ 0 15 / 15 mls/hr .ROUTE .STK-MED ONE Rx#: [id number] Heparin/D5W 25,000 U/250 mL 25, 250 / 250 000 unit In 250 ml @ Per Protocol IV.CONT TITRATE PRN Rx #:[id number] NS Inj 1,000 ML @ 70 mls/hr IV. 1000 / 1000 CONT .[id number] [facility] Rx#:[id number] Aggrastat Inj 12,500 mcg In 250 200 / 200 ml @ Per Protocol IV.CONT .Q0M [facility] Rx#:[id number] Oral 240 / 240 240 / 240 480 / 480 Output: Urine 450 / 450 400 / 400 Other: Date of Last Bowel Movement 08/22/18 08/24/18 # Bowel Movements 0 Results 08/25/18 04:38 08/25/18 04:38 Cardiac Enzymes 08/23/18 Range/Units 22:31 Troponin I 5.45 H* (0.02-0.05) ng/mL Coagulation 08/23/18 08/24/18 Range/Units 22:31 04:23 APTT 42.1 H 46.5 H (24.3-30.1) sec Lipids 08/25/18 Range/Units 04:38 Triglycerides 228 H (42-150) mg/dL Cholesterol 172 (120-200) mg/dL HDL Cholesterol 38.9 L (40.0-60.0) mg/dL Cholesterol/HDL Ratio 4.42 Ratio CBC 08/24/18 08/25/18 Range/Units 04:23 04:38 WBC 8.1 7.8 (4.0-11.0) th/mm3 RBC 4.37 L 4.56 (4.50-5.90) mil/mm3 Hgb 13.9 14.5 (13.0-17.0) gm/dL Hct 40.6 42.7 (39.0-51.0) % Plt Count 164 182 (150-450) th/mm3 Neut # (Auto) 5.2 (1.8-7.7) th/mm3 Lymph # (Auto) 1.8 (1.0-4.8) th/mm3 [place] # (Auto) 0.7 (0.0-0.9) th/mm3 Eos # (Auto) 0.1 (0.0-0.4) th/mm3 Baso # (Auto) 0.0 (0.0-0.2) th/mm3 Comprehensive Metabolic Panel 08/25/18 Range/Units 04:38 Sodium 141 (136-145) meq/L Potassium 3.7 (3.5-5.1) meq/L Chloride 104 (98-107) meq/L Carbon Dioxide 28.5 (21.0-32.0) meq/L BUN 12 (7-18) mg/dL Creatinine 0.75 (0.60-1.30) mg/dL Calcium 8.5 (8.5-10.1) mg/dL Intake and Output 08/25/18 08/25/18 08/25/18 06:59 14:59 22:59 Intake Total 240 / 240 730 / 730 Output Total 450 / 450 400 / 400 Balance -210 / -210 330 / 330 Intake: IV 250 / 250 Aggrastat Inj 12,500 mcg In 250 200 / 200 ml @ Per Protocol IV.CONT .Q0M [facility] Rx#:[id number] Oral 240 / 240 480 / 480 Output: Urine 450 / 450 400 / 400 Other: Date of Last Bowel Movement 08/22/18 08/24/18 # Bowel Movements 0 Weight 88 kg Assessment and Plan - Assessment (1) CAD (coronary artery disease) Code(s): I25.10 - Atherosclerotic heart disease of [place] coronary artery without angina pectoris Status: Acute (2) Non-ST elevation (NSTEMI) myocardial infarction Code(s): I21.4 - Non-ST elevation (NSTEMI) myocardial infarction Status: Acute - Plan 1.) CAD - pod #1 s/p bms om, assymptomatic, ok to dc on aspirin, plavix, pravachol, lopressor, altace; i advised patient to f/u with me 08/29/18, he understands
--- NOTE | 2018-08-26 12:10 | ECG ---
Date Performed: 08/25/2018 Time Performed: 08:30:22 PTAGE: 68 years EKG: --- Warning: Data quality may affect interpretation --- Sinus rhythm . Inferior infarct - age undetermined Abnormal ECG PREVIOUS TRACING : 08/23/2018 05.35 Since the previous tracing, no significant change noted DOCTOR: Truman Klein Interpretating Date/Time 08/26/2018 12:09:51
== END 2018-08-25 16:02 | disposition home or self-care (01) ==
LOC: NEPC 17:16 → NEDA 19:32 → HCIS 22:45
PROVIDERS: ADMIT Hospitalist; ATTEND Hospitalist